=== PATIENT | male | born 1950 | race Caucasian/White ===

== ENCOUNTER 2020-06-17 14:21 | Outpatient (CLI) | payer MEDICARE, MEDICAID, SELFPAY | END 2020-06-17 14:22 | disposition home or self-care (01) | LOC: LAB 14:30 | PROVIDERS: PCP Family Medicine; Visit Provider Urology | DX: R97.20 Elevated prostate specific antigen [PSA] (principal) | CPT/HCPCS: 84153 ==

== ENCOUNTER → 2020-06-18 14:49 | Outpatient (BNVA) | payer MEDICARE, MEDICAID, SELFPAY | PROVIDERS: PCP Family Medicine; Visit Provider Urology | DX: R97.20 Elevated prostate specific antigen [PSA] (principal) | CPT/HCPCS: 81001 ==

== ENCOUNTER → 2021-02-03 14:54 | Outpatient (BNVA) | payer MEDICARE, MEDICAID, SELFPAY | PROVIDERS: PCP Family Medicine; Visit Provider Urology | DX: R33.9 Retention of urine, unspecified (principal); R97.20 Elevated prostate specific antigen [PSA] | CPT/HCPCS: 81003; 84153 ==

== ENCOUNTER 2022-01-18 09:20 | Outpatient (CLI) | payer MEDICARE, MEDICAID, SELFPAY | END 2022-01-18 09:21 | disposition home or self-care (01) | LOC: LAB 09:22 | PROVIDERS: Urology; PCP Family Medicine; Visit Provider Family Medicine | DX: Z00.00 Encounter for general adult medical examination without abnormal findings (principal); R97.20 Elevated prostate specific antigen [PSA] | CPT/HCPCS: 81003; 84153 ==

== ENCOUNTER 2022-07-05 10:55 | Outpatient (CLI) | payer MEDICARE, MEDICAID, SELFPAY | END 2022-07-05 10:56 | disposition home or self-care (01) | LOC: LAB 11:00 | PROVIDERS: PCP Family Medicine; Visit Provider Urology | DX: R97.20 Elevated prostate specific antigen [PSA] (principal); N40.1 Benign prostatic hyperplasia with lower urinary tract symptoms; N13.8 Other obstructive and reflux uropathy; R33.9 Retention of urine, unspecified | CPT/HCPCS: 36415; 51798; 84153; 99213 ==

== ENCOUNTER → 2022-07-22 07:19 | Outpatient (BNVA) | payer MEDICARE, MEDICAID, SELFPAY | PROVIDERS: PCP Family Medicine; Visit Provider Urology | DX: N40.1 Benign prostatic hyperplasia with lower urinary tract symptoms (principal); N13.8 Other obstructive and reflux uropathy; R97.20 Elevated prostate specific antigen [PSA]; R33.9 Retention of urine, unspecified | CPT/HCPCS: 81003 ==

== ENCOUNTER → 2022-08-26 10:09 | Outpatient (BNVA) | payer MEDICARE, MEDICAID, SELFPAY | PROVIDERS: PCP Family Medicine; Visit Provider Student in an Organized Health Care Education/Training Program | DX: S89.91XA Unspecified injury of right lower leg, initial encounter (principal); W01.0XXA Fall on same level from slipping, tripping and stumbling without subsequent striking against object, initial encounter | CPT/HCPCS: 73560; 73565; 99204 ==

== ENCOUNTER 2022-09-01 14:52 | Emergency (ER) | payer MEDICARE, MEDICAID, SELFPAY ==
[2022-09-01 16:33] VITALS: BMI 22.1
[2022-09-01 16:37] VITALS: BP 147/88; PULSE 81; RESP 18; TEMP 36.8; O2SAT 98
--- NOTE | 2022-09-01 18:26 | CTR_ITS ---
PROCEDURE INFORMATION: Exam: CT Head Without Contrast Exam date and time: 09/01/2022 6:54 PM Age: 71 years old Clinical indication: Injury or trauma; Fall; Blunt trauma (contusions or hematomas); Additional info: Fall, head strike TECHNIQUE: Imaging protocol: Computed tomography of the head without contrast. Radiation optimization: All CT scans at this facility use at least one of these dose optimization techniques: automated exposure control; mA and/or kV adjustment per patient size (includes targeted exams where dose is matched to clinical indication); or iterative reconstruction. COMPARISON: No relevant prior studies available. RADIATION DOSE METRICS: Total DLP (mGy-cm): 1095.59 FINDINGS: Brain: Mild diffuse cortical volume loss, appropriate for patient age. Encephalomalacia in the right temporal and parietal lobes. Very mild hypodensities in supratentorial periventricular and subcortical white matter, consistent with microangiopathy. No intracranial hemorrhage. Cerebral ventricles: No ventriculomegaly. Paranasal sinuses: Visualized sinuses are unremarkable. No fluid levels. Mastoid air cells: Visualized mastoid air cells are well aerated. Bones/joints: Unremarkable. No acute fracture. Soft tissues: Small right frontal scalp contusion. Vasculature: No hyperdense artery. CT/CT head wo con* [id number] IMPRESSION: 1. No fracture or intracranial hemorrhage. 2. Right temporoparietal encephalomalacia.
--- NOTE | 2022-09-01 18:26 | CTR_ITS ---
PROCEDURE INFORMATION: Exam: CT Cervical Spine Without Contrast Exam date and time: 09/01/2022 6:56 PM Age: 71 years old Clinical indication: Injury or trauma; Fall; Blunt trauma; Additional info: Fall, head strike TECHNIQUE: Imaging protocol: Computed tomography of the cervical spine without contrast. Radiation optimization: All CT scans at this facility use at least one of these dose optimization techniques: automated exposure control; mA and/or kV adjustment per patient size (includes targeted exams where dose is matched to clinical indication); or iterative reconstruction. COMPARISON: CR XR cervical spine 3V* [id number] 08/12/2018 5:47 PM RADIATION DOSE METRICS: Total DLP (mGy-cm): 148.82 FINDINGS: Bones/joints: The vertebral body alignment and stature is intact. No fracture or subluxation. The facets are intact with hypertrophic degenerative changes. Disc space narrowing with posterior endplate and uncovertebral spurring at C5-C6. Large posterior endplate spurs at C5-C6 with severe central canal stenosis. 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 Multilevel bilateral bony neural foraminal stenosis. Posterior disc bulge with moderate central canal stenosis at C3-C4. Lungs: Lung apices are normal. Soft tissues: Unremarkable. CT/CT cervical spin wo con* [id number] IMPRESSION: 1. No fracture or acute finding. 2. Multilevel severe degenerative changes. 3. Severe central canal stenosis at C5-C6 due to posterior endplate spurring.
--- NOTE | 2022-09-01 18:52 | W.ED.HEATRA ---
HPI - Head Injury General: Chief complaint: Head Injury Stated complaint: FALL Time Seen by Provider: 09/01/22 18:52 History of Present Illness: 71-year-old male patient reports that he tripped on the curb when he was out walking today. Patient struck the right forehead against the ground. Patient denied any loss of consciousness. Patient reports some soreness at the site of injury but no significant headache. Patient takes 81 mg aspirin a day but no routine blood thinners. Patient is alert and acting age-appropriate. Associated symptoms: Deny neck pain Review of Systems Const: Denies: fever(s) Card: Denies: chest pain Resp: Denies: dyspnea Musc: Denies: neck pain or back pain Skin/Breast: Reports: new lesions PFSH ED PFSH: Medical History BPH w urinary obs/LUTS Elevated PSA Incomplete bladder emptying Surgical History H/O hernia repair H/O prostate biopsy Family History Mother , at age 50 Stroke Father No problems noted. Social History Smoking and tobacco status: former smoker Alcohol intake: never Marital status: / Current occupational status: disabled History of recent travel: No Physical Exam Const: COMMON NORMALS: alert HENMT: HEAD & SCALP: abrasion (Right forehead linear pattern) Eye: GENERAL EYE: appearance normal, both eyes and all related structures and decreased light reflex (Cataract surgery) DIRECT OPHTHALMOSCOPY: Yes decreased light reflex (Cataract surgery) Neck/C-Spine: CERVICAL SPINE: Yes cervical ROM normal and No Cervical spine tenderness Chest: COMMONS NORMALS: normal palpation of entire chest wall Resp: COMMON NORMALS: normal respiratory effort and clear to auscultation bilaterally AUSCULTATION: clear to auscultation bilaterally Cardio: COMMON NORMALS: regular rate and regular rhythm RATE: regular rate RHYTHM: regular rhythm GI: COMMON NORMALS: Soft to palpation and non-tender PALPATION: Yes Soft to palpation : COMMON NORMALS: Yes no CVA tenderness BLADDER/KIDNEY EXAM: Yes no CVA tenderness Back/Pelvis: COMMON NORMALS: no CVA tenderness THORACIC SPINE/UPPER BACK: No thoracic spinal tenderness LUMBAR SPINE/LOWER BACK: No lumbar spinal tenderness Extremity: COMMON NORMALS: normal to inspection Neuro: SENSORIUM/ORIENTATION: Yes alert Psych: COMMON NORMALS: cooperative Skin: TRAUMA: abrasion (Right forehead) Course Vital Signs: Vital signs: Vital Signs Temperature 98.2 F 09/01/22 16:37 Pulse Rate 81 09/01/22 16:37 Respiratory Rate 18 09/01/22 16:37 Blood Pressure 147/88 09/01/22 16:37 Pulse Oximetry 98 09/01/22 16:37 Oxygen Delivery Me thod 09/01/22 16:37 MDM - Head Injury Medcial Decision Making 71-year-old male patient comes in today for evaluation of injury sustained during a trip and fall. Patient recalls an event. Patient reports tripping over the curb. Patient does have a noticeable abrasion to the right frontal scalp forehead area. No palpable crepitus is noted. No pain is noted along the neck and spine. Chest wall is nontender. Abdomen soft nontender. Patient was all extremities well. Patient is able ambulate. Differential diagnosis includes fracture, intracranial bleeding, contusions. CT of the head and cervical spine noted no acute injury. Reviewed exam with patient and family member with recommendations for follow-up or return to the ER. Lab Data Radiology Impressions Cervical Spine CT 09/01/22 18:26 IMPRESSION: 1. No fracture or acute finding. 2. Multilevel severe degenerative changes. 3. Severe central canal stenosis at C5-C6 due to posterior endplate spurring. Head CT 09/01/22 18:26 IMPRESSION: 1. No fracture or intracranial hemorrhage. 2. Right temporoparietal encephalomalacia. Discharge Plan Discharge Patient Disposition: Home Clinical Impression: Fall from other slipping, tripping, or stumbling Contusion of head Qualifiers: Encounter type: initial encounter Contusion of head detail: scalp Qualified Code(s): S00.03XA - Contusion of scalp, initial encounter Condition: Stable Prescriptions: No Action meloxicam 15 mg tablet 15 mg PO DAILY tamsulosin 0.4 mg capsule 0.4 mg PO DAILY aspirin 81 mg tablet,delayed release (DR/EC) 81 mg PO DAILY lisinopril 10 mg tablet 10 mg PO DAILY pravastatin 20 mg tablet 20 mg PO DAILY triamcinolone acetonide 0.1 % cream 1 applic topical BID Qty: 30 1RF meclizine 25 mg tablet 25 mg PO QID PRN (Reason: dizziness) Qty: 60 6RF meloxicam 15 mg tablet 15 mg PO DAILY 30 Days Qty: 30 0RF finasteride 5 mg tablet See Rx Instructions .ROUTE .COMPLEX Qty: 90 3RF Dose Instruction: Take 1 tablet by mouth once daily Rx Instructions: Take 1 tablet by mouth once daily omeprazole 40 mg capsule,delayed release(DR/EC) 40 mg PO DAILY Qty: 90 3RF amitriptyline 25 mg tablet 25 mg PO DAILY Qty: 90 3RF hydrocodone-acetaminophen 7.5-325 mg tablet 1 tab PO BID PRN (Reason: pain) 30 Days Qty: 60 0RF Discharge Orders: Discharge ED (Routine); Ordered 09/01/22 Ordered By: Peter Lucero Referrals: Ray Washburn MD [Primary Care Provider] - Discharge Diet: Usual diet Discharge Activity: Increase activity as tolerated Patient Instructions: Head Injury (ED) Activity Restrictions/Additional Instructions: Home and rest. Activity as tolerated. Continue with routine care. Follow-up with primary care in 2 to 3 days for recheck. Return to ED for worsening symptoms such as severe headache, seizure activity, or unresponsiveness or other new concerns. Coding Level of Care Code ED [employer] for [employer] Exam Comprehensive
[2022-09-01 20:06] VITALS: BP 147/88; PULSE 81; RESP 18; TEMP 36.8
== END 2022-09-01 20:07 | disposition home or self-care (01) ==
PROVIDERS: Emergency Provider Nurse Practitioner Family; PCP Family Medicine
DX: S00.03XA Contusion of scalp, initial encounter (principal); Z79.82 Long term (current) use of aspirin; Z87.891 Personal history of nicotine dependence; W18.09XA Striking against other object with subsequent fall, initial encounter
CPT/HCPCS: 70450; 72125; 99284

== ENCOUNTER → 2022-10-11 13:21 | Outpatient (BNVA) | payer MEDICARE, MEDICAID, SELFPAY | PROVIDERS: PCP Family Medicine; Visit Provider Family Medicine | DX: Z51.81 Encounter for therapeutic drug level monitoring (principal); I10 Essential (primary) hypertension; E55.9 Vitamin D deficiency, unspecified; R33.9 Retention of urine, unspecified; R97.20 Elevated prostate specific antigen [PSA]; Z13.220 Encounter for screening for lipoid disorders; R42 Dizziness and giddiness; Z00.00 Encounter for general adult medical examination without abnormal findings; I49.9 Cardiac arrhythmia, unspecified | CPT/HCPCS: 80053; 80061; 82306; 85025 ==

== ENCOUNTER 2023-01-10 10:32 | Outpatient (CLI) | payer MEDICARE, MEDICAID, SELFPAY ==
[2023-01-10 11:33] LABS: Prostate Specific AG Urology 11.37 ng/mL (0-4)
== END 2023-01-10 10:33 | disposition home or self-care (01) ==
LOC: LAB 10:38
PROVIDERS: PCP Family Medicine; Visit Provider Urology
DX: R97.20 Elevated prostate specific antigen [PSA] (principal)
CPT/HCPCS: 51798; 81003; 84153; 99213

== ENCOUNTER 2024-03-22 08:56 | Outpatient (CLI) | payer MEDICARE, MEDICAID, SELFPAY ==
--- NOTE | 2024-03-22 09:03 | MR_ITS ---
WS: [id number] MRI BRAIN WITH AND WITHOUT CONTRAST HISTORY: Dizziness - concern for stroke COMPARISON: None available. TECHNIQUE: Multiplanar imaging performed through the brain with MultiHance 14 ml's IV. Diffusion imaging is normal. No acute infarct. Remote large posterior RIGHT parietotemporal lobe infa rct. Mild volume loss and encephalomalacia associated with the infarct. No associated hemorrhage. Mil d bilateral hippocampal atrophy. No susceptibility artifacts or prior lacunar infarcts. Ventricles and extra-axial spaces are normal. Clivus and pituitary gland are normal. Visualized posterior fossa and brainstem are also normal. Postcontrast images are negative for masses or vascular malformations. Dural venous sinuses are normal. Paranasal sinuses: Well aerated with no significant disease. Mastoid air cells: Normal. Calvarium and scalp: Normal. MR/MR head wo/w con [id number] IMPRESSION: 1. Normal diffusion imaging. No acute infarct. 2. 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 3. Mild bilateral hippocampal atrophy. 4. No enhancing masses.
[2024-03-22] MEDS: gadobenate dimeglumine 20 mL vial IV (10:23)
== END 2024-03-22 08:57 | disposition home or self-care (01) ==
LOC: RAD 08:56
PROVIDERS: PCP Family Medicine; Visit Provider Family Medicine
DX: R42 Dizziness and giddiness (principal)
CPT/HCPCS: 70553; A9577

== ENCOUNTER → 2024-06-14 13:57 | Outpatient (BNVA) | payer MEDICARE, MEDICAID, SELFPAY | PROVIDERS: PCP Family Medicine; Visit Provider Family Medicine | DX: Z51.81 Encounter for therapeutic drug level monitoring (principal); R33.9 Retention of urine, unspecified; E55.9 Vitamin D deficiency, unspecified | CPT/HCPCS: 80053; 80061; 82306; 84153; 85025 ==

== ENCOUNTER → 2025-02-20 11:53 | Outpatient (BNVA) | payer MEDICARE, MEDICAID, SELFPAY | PROVIDERS: PCP Family Medicine; Visit Provider Family Medicine | DX: R63.4 Abnormal weight loss (principal); Z00.00 Encounter for general adult medical examination without abnormal findings; R53.81 Other malaise; R53.83 Other fatigue; Z51.81 Encounter for therapeutic drug level monitoring; R33.9 Retention of urine, unspecified | CPT/HCPCS: 80053; 83690; 84153; 84443; 85025; 86141 ==

== ENCOUNTER 2025-03-28 07:46 | Outpatient (CLI) | payer MEDICARE, MEDICAID, SELFPAY ==
[2025-03-28] MEDS: iohexol 350 mg/mL 500 mL Btl (per mL) IV (08:25)
--- NOTE | 2025-03-28 08:30 | CT_ITS ---
WS: [id number] CT ABDOMEN PELVIS TECHNIQUE: Contrast-enhanced CT of the abdomen and pelvis with coronal and sagittal reformatted images. CLINICAL INFORMATION: Epigastric pain, weight loss, elevated lipase COMPARISON: None. DLP: 269.[address] scans at [facility] use at least one of these dose optimization techniques: automated exposure control; mA and/or kV adjustment per patient size (includes targeted exams where dose is matched to clinical indication); or iterative reconstruction. FINDINGS: Fatty liver. Portal vein and splenic vein are patent. Slight bibasilar atelectasis. Fatty atrophy of the pancreas with pancreatic calcifications. Slight induration about the pancreatic head suspicious for acute pancreatitis although some images degraded by respiratory motion in this area. Gallbladder is contracted. Small esophageal hiatal hernia. Evidence of gastritis and duodenitis. Normal caliber abdominal aorta. Aortic calcification. Tiny fat- containing umbilical hernia. Adrenal glands are normal. Normal renal parenchymal enhancement. No hydronephrosis. Small bilateral renal cyst. Markedly enlarged heterogeneously enhancing prostate with evidence of bladder outlet obstruction. Sigmoid diverticulosis. No evidence of acute diverticulitis. CT/CT abdomen pelvis w con* [id number] IMPRESSION: 1. Markedly enlarged heterogeneously enhancing prostate suspicious for neoplas ia/hyperplasia with evidence of bladder outlet obstruction. Prostate measures 6 .3 cm. Recommend correlation PSA. 2. Fatty liver. 3. Evidence of gastritis and duodenitis. 4. Fatty atrophy of the pancreas with pancreatic calcifications suggestive of prior episodes of pancreatitis. 5. Slight induration about the pancreatic head suspicious for pancreatitis. No fluid collections. Recommend correlation with pancreatic enzymes. Images in th is area are degraded due to respiratory artifact
== END 2025-03-28 07:47 | disposition home or self-care (01) ==
PROVIDERS: PCP Family Medicine; Visit Provider Family Medicine
DX: R10.9 Unspecified abdominal pain (principal); R63.4 Abnormal weight loss; R74.8 Abnormal levels of other serum enzymes; N40.0 Benign prostatic hyperplasia without lower urinary tract symptoms; K76.0 Fatty (change of) liver, not elsewhere classified; R93.89 Abnormal findings on diagnostic imaging of other specified body structures; K86.89 Other specified diseases of pancreas; K44.9 Diaphragmatic hernia without obstruction or gangrene; I70.0 Atherosclerosis of aorta; N28.1 Cyst of kidney, acquired; K57.30 Diverticulosis of large intestine without perforation or abscess without bleeding
CPT/HCPCS: 74177

== ENCOUNTER → 2025-06-17 14:26 | Outpatient (BNVA) | payer MEDICARE, MEDICAID, SELFPAY | PROVIDERS: PCP Family Medicine; Visit Provider Family Medicine | DX: N13.8 Other obstructive and reflux uropathy (principal); N40.1 Benign prostatic hyperplasia with lower urinary tract symptoms; N41.0 Acute prostatitis | CPT/HCPCS: 84153 ==

== ENCOUNTER → 2025-08-12 14:21 | Outpatient (BNVA) | payer MEDICARE, MEDICAID, SELFPAY | PROVIDERS: PCP Family Medicine; Visit Provider Family Medicine | DX: R97.20 Elevated prostate specific antigen [PSA] (principal) | CPT/HCPCS: 84153 ==